=== PATIENT | female | born 1980 | race Caucasian/White ===

== ENCOUNTER 2017-07-16 09:00 | Outpatient (CLI) | payer OTHER | END 2017-07-16 09:01 | disposition home or self-care (01) | LOC: BICRAD 09:00 | PROVIDERS: ATTEND Nurse Practitioner Acute Care | DX: M25.512 Pain in left shoulder (principal); C50.412 Malignant neoplasm of upper-outer quadrant of left female breast; M54.9 Dorsalgia, unspecified ==

== ENCOUNTER 2017-08-19 08:09 | Outpatient (CLI) | payer OTHER | END 2017-08-19 08:10 | disposition home or self-care (01) | LOC: BICMAMMO 08:09 | PROVIDERS: ATTEND Radiology Radiation Oncology | DX: C50.912 Malignant neoplasm of unspecified site of left female breast (principal) | CPT/HCPCS: 77066; G0279 ==

== ENCOUNTER 2018-05-05 14:09 | Outpatient (CLI) | payer OTHER ==
--- NOTE | 2018-05-05 15:42 | ULT ---
LEFT BREAST ULTRASOUND: Date: 05/05/18 HISTORY: Palpable abnormality just above the scar in the left axilla. FINDINGS: Correlation is made with mammogram from same date. Sonographic evaluation of the left axilla at the region of palpable concern above the scar demonstrat es no abnormality. IMPRESSION: 1. BIRADS Category 2 - Benign findings. Return to annual mammographic screening. 2. Further evaluation (including biopsy) of the region of palpable concern should be based upon clin ical findings/suspicion. POS: OFF
--- NOTE | 2018-05-06 15:33 | MMO ---
Left Breast MAMMO Unilat Diag DDI LT+AMEE. CLINICAL HISTORY: Patient is 37 years old and is seen for diagnostic exam. The patient has the following family history of breast cancer: sister, at age 33. The patient has a history of Ultrasound Guided Core Biopsy procedure revealed invasive ductal left breast carcinoma in July,. The patient has a history of left Lumpectomy in August, - invasive ductal carcinoma. VIEWS: The views performed were: left craniocaudal with tomosynthesis; left mediolateral oblique with tomosynthesis; and left mediolateral. FILMS COMPARED: The present examination has been compared to prior imaging studies performed at [facility] on 08/12/2016, 08/19/2017 and 05/05/2018, and at [facility] on 09/07/2012. MAMMOGRAM FINDINGS: The breast is heterogeneously dense, which could obscure a lesion on mammography. Finding 1: There is a post-surgical scar seen in the left breast. Finding 2: No suspicious calcifications or masses are seen. No mammographic or sonograhic abnormality is seen at the site of palpable concern in the left breast/axilla. IMPRESSION: ALL ABOVE FINDINGS ARE BENIGN. A ROUTINE FOLLOW-UP MAMMOGRAM AT AGE 40 IS RECOMMENDED. THE RESULTS OF THIS EXAM WERE SENT TO THE PATIENT. ACR BI-RADS Category 2 - Benign finding MAMMOGRAPHY NOTE: 1. A negative mammogram report should not delay a biopsy if a dominant of clinically suspicious mass is present. 2. Approximately 10% to 15% of breast cancers are not detected by mammography. 3. Adenosis and dense breasts may obscure an underlying neoplasm.
== END 2018-05-05 14:10 | disposition home or self-care (01) ==
LOC: BICMAMMO 14:09
PROVIDERS: ATTEND Obstetrics & Gynecology
DX: N63.20 Unspecified lump in the left breast, unspecified quadrant (principal); Z85.3 Personal history of malignant neoplasm of breast; Z80.3 Family history of malignant neoplasm of breast; Z98.890 Other specified postprocedural states
CPT/HCPCS: G0279

== ENCOUNTER 2019-05-06 09:54 | Outpatient (CLI) | payer OTHER ==
--- NOTE | 2019-05-06 11:04 | MMO ---
Bilateral MAMMO Bilat Diag DDI+AMEE. CLINICAL HISTORY: Patient is 38 years old and is seen for diagnostic exam and palpable abnormality in the left breast. The patient has the following family history of breast cancer: sister, at age 33. The patient has a history of Ultrasound guided core biopsy procedure revealed invasive ductal left breast carcinoma in July,. The patient has a history of left Lumpectomy in August, - invasive ductal carcinoma. VIEWS: The views performed were: bilateral craniocaudal with tomosynthesis; bilateral mediolateral oblique with tomosynthesis; and bilateral mediolateral with tomosynthesis. FILMS COMPARED: The present examination has been compared to prior imaging studies performed at [facility] on 08/19/2017, 05/05/2018 and 05/06/2019. This study has been interpreted with the assistance of computer-aided detection. MAMMOGRAM FINDINGS: The breasts are heterogeneously dense, which could obscure a lesion on mammography. Finding 1: There are post operative changes seen in the left breast. Finding 2: There are no mammographic or sonographic abnormalities in the area of palpable concern. The patient is referred back to her clinician. Negative imaging findings should not preclude biopsy if clinical findings are suspicious. There are no suspicious masses, suspicious calcifications, or new areas of architectural distortion. IMPRESSION: FINDING 2: THERE ARE NO MAMMOGRAPHIC ABNORMALITIES IN THE AREA OF PALPABLE CONCERN. THE PATIENT IS REFERRED BACK TO HER CLINICIAN. NEGATIVE IMAGING FINDINGS SHOULD NOT PRECLUDE BIOPSY IF CLINICAL FINDINGS ARE SUSPICIOUS. THE RESULTS OF THIS EXAM WERE SENT TO THE PATIENT. ACR BI-RADS Category 2 - Benign finding MAMMOGRAPHY NOTE: 1. A negative mammogram report should not delay a biopsy if a dominant of clinically suspicious mass is present. 2. Approximately 10% to 15% of breast cancers are not detected by mammography. 3. Adenosis and dense breasts may obscure an underlying neoplasm. Reported by: HARITHA AGUILAR MD Electonically Signed: [id number]
--- NOTE | 2019-05-06 11:05 | MMO ---
Left US Breast Limited Lt. CLINICAL HISTORY: Patient is 38 years old and is seen for . The patient has a history of Ultrasound guided core biopsy procedure revealed invasive ductal left breast carcinoma in July,. The patient has a history of left Lumpectomy in August, - invasive ductal carcinoma. VIEWS: The views performed were: . FILMS COMPARED: The present examination has been compared to prior imaging studies performed at [facility] on 08/19/2017, 05/05/2018 and 05/06/2019. This study has been interpreted with the assistance of computer-aided detection. LEFT BREAST ULTRASOUND FINDINGS: There are no mammographic or sonographic abnormalities in the area of palpable concern. The patient is referred back to her clinician. Negative imaging findings should not preclude biopsy if clinical findings are suspicious. On ultrasound, no suspicious findings are identified. IMPRESSION: THERE ARE NO SONOGRAPHIC ABNORMALITIES IN THE AREA OF PALPABLE CONCERN. THE PATIENT IS REFERRED BACK TO HER CLINICIAN. NEGATIVE IMAGING FINDINGS SHOULD NOT PRECLUDE BIOPSY IF CLINICAL FINDINGS ARE SUSPICIOUS. THE RESULTS OF THIS EXAM WERE SENT TO THE PATIENT. ACR BI-RADS Category 2 - Benign finding MAMMOGRAPHY NOTE: 1. A negative mammogram report should not delay a biopsy if a dominant of clinically suspicious mass is present. 2. Approximately 10% to 15% of breast cancers are not detected by mammography. 3. Adenosis and dense breasts may obscure an underlying neoplasm. Reported by: HARITHA AGUILAR MD Electonically Signed: [id number]
== END 2019-05-06 09:55 | disposition home or self-care (01) ==
LOC: BICMAMMO 09:54
PROVIDERS: ATTEND Internal Medicine Hematology & Oncology
DX: C50.412 Malignant neoplasm of upper-outer quadrant of left female breast (principal)
CPT/HCPCS: 77066; G0279

== ENCOUNTER 2020-01-03 08:47 | Outpatient (CLI) | payer BC, OTHER ==
--- NOTE | 2020-01-03 09:48 | MMO ---
Left Breast MAMMO Unilat Diag DDI LT+AMEE. CLINICAL HISTORY: Patient is 39 years old and is seen for diagnostic exam and palpable abnormality in the left breast. The patient has the following family history of breast cancer: sister, at age 33. The patient has a history of Ultrasound guided core biopsy procedure revealed invasive ductal left breast carcinoma in July,. The patient has a history of left Lumpectomy in August, - invasive ductal carcinoma. VIEWS: The views performed were: left craniocaudal with tomosynthesis; left mediolateral oblique with tomosynthesis; and left mediolateral with tomosynthesis. FILMS COMPARED: The present examination has been compared to prior imaging studies performed at [facility] on 05/05/2018, 05/06/2019 and 01/03/2020. This study has been interpreted with the assistance of computer-aided detection. MAMMOGRAM FINDINGS: The breast is heterogeneously dense, which could obscure a lesion on mammography. Ultrasound and mammogram showed no abnormality in region of palpable finding. There are no suspicious masses, suspicious calcifications, or new areas of architectural distortion. IMPRESSION: THERE IS NO MAMMOGRAPHIC EVIDENCE OF MALIGNANCY. A ROUTINE FOLLOW-UP MAMMOGRAM IN 1 YEAR IS RECOMMENDED. THE RESULTS OF THIS EXAM WERE SENT TO THE PATIENT. ACR BI-RADS Category 2 - Benign finding MAMMOGRAPHY NOTE: 1. A negative mammogram report should not delay a biopsy if a dominant of clinically suspicious mass is present. 2. Approximately 10% to 15% of breast cancers are not detected by mammography. 3. Adenosis and dense breasts may obscure an underlying neoplasm. Reported by: QUENTIN CANO MD Electonically Signed: [id number]
--- NOTE | 2020-01-03 13:28 | ULT ---
LEFT BREAST ULTRASOUND: HISTORY: Palpable abnormality in the left breast 7 o'clock position. COMPARISON: Mammogram study done today and 05/06/2019 and 05/05/2018. FINDINGS: Real-time imaging of the area of concern shows no suspicious lesions. IMPRESSION: BIRADS category 2 - benign findings. POS: OFF
== END 2020-01-03 08:48 | disposition home or self-care (01) ==
LOC: BICMAMMO 08:47
PROVIDERS: ATTEND Surgery
DX: N63.20 Unspecified lump in the left breast, unspecified quadrant (principal)
CPT/HCPCS: G0279